=== PATIENT | male | born 1930 | race African-American/Black ===

== ENCOUNTER 2016-12-07 16:57 | Inpatient (IN) | payer MEDICARE, OTHER ==
[~2016-12-07] VITALS: Ht 175.3 cm; Wt 52.2 kg
[2016-12-07] MEDS ORDERED: SODIUM CHLORIDE 0.9% 1,000 ML IV ONE (18:58)
[2016-12-07 19:19] LABS: GLUCOSE URINE NEGATIVE (NEGATIVE); KETONES URINE 1+ (NEGATIVE); LEUKOCYTE ESTERASE URINE NEGATIVE (NEGATIVE); NITRITE URINE NEGATIVE (NEGATIVE); OCCULT BLOOD URINE 3+ (NEGATIVE); PH URINE 5.5 (4.5-8.0); PROTEIN URINE 2+ (NEGATIVE); SPECIFIC GRAVITY URINE 1.028 (1.005-1.030); UROBILINOGEN URINE 0.2 E.U./dL (0.2-1.0)
[2016-12-07 19:25] LABS: CLARITY URINE SL HAZY (CLEAR); COLOR URINE YELLOW (YELLOW)
[2016-12-07 19:54] LABS: INR 1.4; PROTHROMBIN TIME 14.7 sec (9.4-11.6)
[2016-12-07 19:59] LABS: HEMATOCRIT. 49.5 % (42.0-52.0); HEMOGLOBIN. 16.5 g/dL (14.0-18.0); MEAN CORPUSCULAR HEMOGLOBIN 32.5 pg (28.0-32.0); MEAN CORPUSCULAR VOLUME 97.2 fL (80.0-94.0); MEAN PLATELET VOLUME 9.5 fl (7.4-10.4); PLATELET 135 x1000/uL (130-400); RED BLOOD CELL COUNT 5.09 mill/uL (4.7-6.1); RED CELL DISTRIBUTION WIDTH 14.2 % (11.6-14.6)
[2016-12-07 20:00] LABS: CARBON DIOXIDE 29 mEq/L (21-32); CHLORIDE 111 mEq/L (98-107)
[2016-12-07 20:10] LABS: TROPONIN I 0.62 ng/mL (0.00-0.04)
[2016-12-07 20:16] LABS: CREATINE KINASE 5628 IU/L (39-308)
[2016-12-07] MEDS ORDERED: LACTATED RINGERS 1,000 ML IV STA (20:42)
[2016-12-07 20:59] LABS: PLATELET ESTIMATE NORMAL
[2016-12-07] MEDS ORDERED: DOCUSATE SODIUM 100MG CAPSULE PO PRN (22:00)
[2016-12-07] MEDS ORDERED: GUAIFENESIN 200MG/10ML SUGAR FREE UDC PO PRN (22:00)
[2016-12-07] MEDS ORDERED: DIPHENHYDRAMINE 50MG/ML VIAL IV PRN (22:00)
[2016-12-07] MEDS ORDERED: LORAZEPAM 2MG/ML CPJ IV PRN (22:00)
[2016-12-07] MEDS ORDERED: MORPHINE SULFATE 4 MG/ML CPJ (NOT FOR IM USE) IV PRN (22:00)
[2016-12-07] MEDS ORDERED: MAGNESIUM/ALUMINUM HYDROXIDE/SIMETHICONE 30ML UDC PO PRN (22:00)
[2016-12-07] MEDS ORDERED: LEVOFLOXACIN 500MG PREMIX 100 ML IV SCH (22:00)
[2016-12-07] MEDS ORDERED: CLONIDINE 0.1MG TABLET PO PRN (22:00)
[2016-12-07] MEDS ORDERED: ZOLPIDEM TARTRATE 5MG TABLET PO PRN (22:00)
[2016-12-07] MEDS ORDERED: ACETAMINOPHEN 325MG TABLET PO PRN (22:00)
[2016-12-07] MEDS ORDERED: IPRATROPIUM/ALBUTEROL 0.5-3(2.5)MG/3ML NEB INH PRN (22:00)
[2016-12-07] MEDS ORDERED: ONDANSETRON HCL 4MG/2ML VIAL IV PRN (22:00)
[2016-12-07] MEDS ORDERED: NITROGLYCERIN 0.4MG TABLET SL SL PRN (22:00)
[2016-12-07] MEDS ORDERED: TRAMADOL 50MG TABLET PO PRN (22:00)
[2016-12-07] MEDS ORDERED: NA PHOS,M-B/NA PHOS,DI-BA ENEMA 118ML PR PRN (22:00)
[2016-12-07] MEDS ORDERED: LEVOFLOXACIN 500MG PREMIX 100 ML IV NR (23:45)
[2016-12-07 23:49] LABS: CREATINE KINASE MB FRACTION 48.2 ng/mL (0.5-3.6)
[2016-12-08] VITALS (7 sets, daily range): BP systolic 112–140; BP diastolic 65–78
[2016-12-08 00:12] LABS: TROPONIN I 0.59 ng/mL (0.00-0.04)
[2016-12-08] MEDS ORDERED: AMLO5TAB4 PO (01:58)
[2016-12-08] MEDS: DEXT 5%/0.45% NACL 1000ML 1,000 ML IV SCH ×3 (02:49→21:36)
[2016-12-08 07:53] LABS: *AMPHETAMINES SCREEN URINE NEGATIVE (NEGATIVE); *BARBITURATES SCREEN URINE NEGATIVE (NEGATIVE); *BENZODIAZEPINES SCREEN URINE NEGATIVE (NEGATIVE); *COCAINE SCREEN URINE NEGATIVE (NEGATIVE); CANNABINOID URINE SCREEN NEGATIVE (NEGATIVE); METHADONE URINE SCREEN NEGATIVE (NEGATIVE); OPIATES URINE SCREEN NEGATIVE (NEGATIVE); PHENCYCLIDINE URINE SCREEN NEGATIVE (NEGATIVE)
[2016-12-08] MEDS: ASPIRIN 325MG EC TABLET PO SCH (08:45)
[2016-12-08] MEDS: METOPROLOL TARTRATE 25MG TABLET PO SCH ×2 (08:46→21:36)
[2016-12-08] MEDS: ENOXAPARIN 60MG/0.6ML SYR SUBCUT SCH ×2 (08:47→21:36)
[2016-12-08] MEDS: FAMOTIDINE 20MG/2ML VIAL IV SCH (08:55)
[2016-12-08 09:18] LABS: CREATINE KINASE MB FRACTION 36.1 ng/mL (0.5-3.6)
[2016-12-08 09:52] LABS: TROPONIN I 0.5 ng/mL (0.00-0.04)
[2016-12-08 11:55] LABS: MEAN CORPUSCULAR HEMOGLOBIN 32.2 pg (28.0-32.0); MEAN CORPUSCULAR VOLUME 96.6 fL (80.0-94.0); MEAN PLATELET VOLUME 9.5 fl (7.4-10.4); PLATELET 114 x1000/uL (130-400); RED BLOOD CELL COUNT 4.35 mill/uL (4.7-6.1); RED CELL DISTRIBUTION WIDTH 13.7 % (11.6-14.6)
[2016-12-08 13:29] LABS: PLATELET ESTIMATE DECREASED
[2016-12-08 13:46] LABS: CARBON DIOXIDE 25 mEq/L (21-32); CHLORIDE 113 mEq/L (98-107)
[2016-12-09] VITALS: BP 118/118
[2016-12-09] MEDS ORDERED: LEVOFLOXACIN 250MG PREMIX 50 ML IV SCH
[2016-12-09 04:00] VITALS: BP 138/68
[2016-12-09 06:47] LABS: BASOPHILS % 0.1 % (0.0-2.0); EOSINOPHILS % 0.4 % (0.0-5.0); HEMATOCRIT. 41.5 % (42.0-52.0); HEMOGLOBIN. 13.7 g/dL (14.0-18.0); LYMPHOCYTES % 8.5 % (20.0-50.0); MEAN CORPUSCULAR HEMOGLOBIN 32.2 pg (28.0-32.0); MEAN CORPUSCULAR VOLUME 97.3 fL (80.0-94.0); MEAN PLATELET VOLUME 9.3 fl (7.4-10.4); MONOCYTES % 9.1 % (2.0-8.0); NEUTROPHILS % 81.9 % (40.0-76.0); PLATELET 91 x1000/uL (130-400); RED BLOOD CELL COUNT 4.26 mill/uL (4.7-6.1); RED CELL DISTRIBUTION WIDTH 13.5 % (11.6-14.6)
[2016-12-09 08:00] VITALS: BP 146/83
[2016-12-09] MEDS: ENOXAPARIN 60MG/0.6ML SYR SUBCUT SCH (08:22)
[2016-12-09] MEDS: METOPROLOL TARTRATE 25MG TABLET PO SCH (08:24)
[2016-12-09] MEDS: ASPIRIN 325MG EC TABLET PO SCH (08:24)
[2016-12-09] MEDS: FAMOTIDINE 20MG/2ML VIAL IV SCH (08:24)
[2016-12-09 08:25] LABS: CARBON DIOXIDE 27 mEq/L (21-32); CHLORIDE 108 mEq/L (98-107); TROPONIN I 0.31 ng/mL (0.00-0.04)
[2016-12-09 10:19] VITALS: BP 146/83
[2016-12-09 12:00] VITALS: BP 114/51
== END 2016-12-09 15:44 | disposition home or self-care (01) | DRG 280 ==
LOC: ER 18:00 → 7WST 21:31 → SUPCPDRO 21:46 → EDBEDREQ 21:48 → ENRESERV 23:58
PROVIDERS: ADMIT Internal Medicine; ATTEND Internal Medicine
DX: I21.4 Non-ST elevation (NSTEMI) myocardial infarction (principal); G93.40 Encephalopathy, unspecified; E87.0 Hyperosmolality and hypernatremia; E46 Unspecified protein-calorie malnutrition; M62.82 Rhabdomyolysis; N39.0 Urinary tract infection, site not specified; Z68.1 Body mass index [BMI] 19.9 or less, adult; W01.0XXA Fall on same level from slipping, tripping and stumbling without subsequent striking against object, initial encounter; E86.0 Dehydration; I11.9 Hypertensive heart disease without heart failure; I27.2 Other secondary pulmonary hypertension; I49.3 Ventricular premature depolarization; I36.1 Nonrheumatic tricuspid (valve) insufficiency; I35.1 Nonrheumatic aortic (valve) insufficiency; I34.0 Nonrheumatic mitral (valve) insufficiency; Z87.891 Personal history of nicotine dependence; Y93.89 Activity, other specified; Y92.89 Other specified places as the place of occurrence of the external cause; Y99.8 Other external cause status
CPT/HCPCS: 36415; 70450; 71010; 80048; 80053; 80061; 80305; 81001; 82550; 82553; 82962; 83036; 83605; 83690; 83735; 83880; 84443; 84484; 85025; 85610; 93005; 93306; 93970; 96361; 96365; 97162; 99285; J1650; J1956; J2060; J3490; J7030; J7120